=== PATIENT | female | born 1980 | race Caucasian/White ===

== ENCOUNTER 2016-09-06 12:59 | Emergency (ER) | payer OTHER ==
[~2016-09-06] VITALS: Ht 177.8 cm; Wt 75.9 kg
[~2016-09-06 12:59] MED LIST: CEPHALEXIN500 M1 PO; LORTAB 5/500 501 TAB PO; MOTRIN 600600 MG/TAB PO; PERCOCET 5/321 UDTAB PO; PRENATAL VITAMI1 TA5 PO; PROVERA10 MG PO; SEPTRA DS 8001 TAB PO
[2016-09-06 13:18] VITALS: BP 116/74; TEMP 98.2
[2016-09-06 13:53] LABS: ADD PATHOLOGY DIFF REVIEW NO; TOTAL CELLS COUNTED 0
[2016-09-06 13:57] LABS: HEMATOCRIT 40.5 % (37.0-47.0); MEAN CELL VOLUME 91 fl (80.0-100.0); MEAN CORPUSCULAR HEMOGLOBIN 32 pg (27.0-31.0); MEAN CORPUSCULAR HGB CONC 35 g/dl (33.0-37.0); MEAN PLATELET VOLUME 10.6 fl (7.4-10.4); PLATELET COUNT 234 K/mm3 (130-400); RED BLOOD COUNT 4.45 M/mm3 (4.10-5.30); REDCELL DISTRIBUTION WIDTH-CV 12.9 % (11.5-14.5); WHITE BLOOD COUNT 7.8 K/mm3 (4.8-10.8)
[2016-09-06 14:11] LABS: ADJUSTED CALCIUM 8.9 mg/dL (8.4-10.2); ALANINE AMINOTRANSFERASE 25 U/L (9-52); ALBUMIN 4.3 gm/dL (3.5-5.0); ALKALINE PHOSPHATASE 65 U/L (50-136); ANION GAP 10 mmol/L (7-16); BILIRUBIN,TOTAL 1.4 mg/dL (0.0-1.0); BLOOD UREA NITROGEN 8 mg/dL (7-17); CALCIUM 9.1 mg/dL (8.4-10.2); CARBON DIOXIDE 27 mmol/L (22-30); CHLORIDE 101 mmol/L (98-107); CREATININE, serum 0.62 mg/dL (0.52-1.25); GLUCOSE 90 mg/dL (74-106); POTASSIUM 3.9 mmol/L (3.4-5.0); SODIUM 138 mmol/L (137-145); TOTAL PROTEIN 7.8 gm/dL (6.4-8.2)
[2016-09-06 14:13] LABS: ERYTHROCYTE SEDIMENTATION RATE 4 mm/hr (0-20)
[2016-09-06 14:14] LABS: C-REACTIVE PROTEIN < 0.5 mg/dL (0.0-0.9)
[2016-09-06] MEDS ORDERED: PREDNISONE10 MG PO (14:43)
[2016-09-06] MEDS ORDERED: VALTREX1 GM PO (14:43)
[2016-09-06 15:11] VITALS: PULSE 61
[2016-09-06] MEDS ORDERED: PERCOCET 325 MG1 TA2 PO (15:18)
== END 2016-09-06 15:22 | disposition home or self-care (01) ==
LOC: COL.ER 12:59
PROVIDERS: Family Medicine
DX: G51.0 Bell's palsy (principal)
CPT/HCPCS: J1170

== ENCOUNTER 2016-09-19 02:34 | Emergency (ER) | payer OTHER ==
[~2016-09-19] VITALS: Ht 177.8 cm; Wt 75.0 kg
[~2016-09-19 02:34] MED LIST changes: +PERCOCET 325 MG1 TA2 PO; +PREDNISONE10 MG PO; +VALTREX1 GM PO
[2016-09-19 02:39] VITALS: TEMP 98
[2016-09-19] MEDS ORDERED: MOTRIN 600600 MG/TAB PO (02:46)
[2016-09-19] MEDS ORDERED: NEURONTIN300 MG/CAP PO (02:46)
[2016-09-19 02:52] LABS: BASO # 0.1 (0.0-0.2); BASO % 0.4 % (0.0-2.0); EOS # 0.4 (0.0-0.7); EOS % 2.6 % (0-4.0); GRAN # 8.6 (1.4-6.5); GRAN % 58.3 % (42.2-75.2); HEMATOCRIT 42.3 % (37.0-47.0); HEMOGLOBIN 14.4 g/dl (12.5-16.0); LYMPH # 4.4 (1.2-3.4); LYMPH % 29.5 % (20.0-51.0); MEAN CELL VOLUME 92 fl (80.0-100.0); MEAN CORPUSCULAR HEMOGLOBIN 31 pg (27.0-31.0); MEAN CORPUSCULAR HGB CONC 34 g/dl (33.0-37.0); MEAN PLATELET VOLUME 10.2 fl (7.4-10.4); MONO # 1.3 (0.1-0.6); MONO % 8.8 % (1.7-9.3); PLATELET COUNT 279 K/mm3 (130-400); RED BLOOD COUNT 4.61 M/mm3 (4.10-5.30); REDCELL DISTRIBUTION WIDTH-CV 13.2 % (11.5-14.5); WHITE BLOOD COUNT 14.8 K/mm3 (4.8-10.8)
[2016-09-19 03:08] LABS: ADJUSTED CALCIUM 9.3 mg/dL (8.4-10.2); ALBUMIN 4.4 gm/dL (3.5-5.0); BILIRUBIN,TOTAL 0.7 mg/dL (0.0-1.0); C-REACTIVE PROTEIN 0.6 mg/dL (0.0-0.9); CALCIUM 9.6 mg/dL (8.4-10.2); CREATININE, serum 0.64 mg/dL (0.52-1.25); POTASSIUM 3.6 mmol/L (3.4-5.0)
[2016-09-19 03:24] LABS: PH 7 (5-8); SQUAMOUS EPITHELIAL 0-2 /hpf; URINE APPEARANCE Hazy; URINE BACTERIA None Seen /hpf; URINE BILIRUBIN Negative (NEGATIVE); URINE BLOOD Negative (NEGATIVE); URINE COLOR Yellow; URINE GLUCOSE Negative (NEGATIVE); URINE KETONE Trace (NEGATIVE); URINE RBC 0-2 /hpf
[2016-09-19 05:05] VITALS: BP 136/74; PULSE 82
== END 2016-09-19 05:20 | disposition home or self-care (01) ==
LOC: COL.ER 02:34
PROVIDERS: Emergency Medicine
DX: R10.31 Right lower quadrant pain (principal); R10.32 Left lower quadrant pain
CPT/HCPCS: J1170; J2405; J7030; Q9967

== ENCOUNTER → 2020-05-06 | Outpatient (CLI) | payer OTHER ==
[~2020-05-06] MED LIST changes: +NEURONTIN300 MG/CAP PO
== END ==
LOC: MC.RAD 14:22
DX: Z12.31 Encounter for screening mammogram for malignant neoplasm of breast (principal)

== ENCOUNTER 2020-06-22 13:25 | Observation (INO) | payer OTHER ==
[2020-06-22] VITALS (7 sets, daily range): BP systolic 111–135; BP diastolic 59–73; PULSE 53–73
[~2020-06-22] VITALS: Ht 177.8 cm; Wt 79.5 kg
[2020-06-22 13:54] LABS: BASO # 0.1 (0.0-0.2); BASO % 0.6 % (0.0-2.0); EOS # 0.1 (0.0-0.7); EOS % 0.6 % (0-4.0); GRAN # 9.5 (1.4-6.5); GRAN % 76.4 % (42.2-75.2); HEMATOCRIT 42.3 % (37.0-47.0); HEMOGLOBIN 14.6 g/dl (12.5-16.0); LYMPH # 1.9 (1.2-3.4); LYMPH % 15.2 % (20.0-51.0); MEAN CELL VOLUME 91 fl (80.0-100.0); MEAN CORPUSCULAR HEMOGLOBIN 31 pg (27.0-31.0); MEAN CORPUSCULAR HGB CONC 35 g/dl (33.0-37.0); MEAN PLATELET VOLUME 10.7 fl (7.4-10.4); MONO # 0.9 (0.1-0.6); MONO % 6.8 % (1.7-9.3); PLATELET COUNT 282 K/mm3 (130-400); RED BLOOD COUNT 4.67 M/mm3 (4.10-5.30); REDCELL DISTRIBUTION WIDTH-CV 12.7 % (11.5-14.5)
[2020-06-22 14:04] LABS: ALBUMIN 4.6 gm/dL (3.5-5.0); BILIRUBIN,TOTAL 0.9 mg/dL (0.0-1.0); CALCIUM 9.5 mg/dL (8.4-10.2); CREATININE, serum 0.59 (0.52-1.25); POTASSIUM 3.8 mmol/L (3.4-5.0)
[2020-06-22 14:28] LABS: COLLECTION METHOD CLEAN CATCH
[2020-06-22 14:35] LABS: AMORPHOUS CRYSTAL Present /uL; MUCOUS Present /lpf; PH 7 (5-8); SQUAMOUS EPITHELIAL 0-2 /hpf; URINE APPEARANCE Cloudy; URINE BACTERIA None Seen /hpf; URINE BILIRUBIN Negative (NEGATIVE); URINE BLOOD Negative (NEGATIVE); URINE COLOR Yellow; URINE GLUCOSE Negative (NEGATIVE); URINE KETONE 1+ (NEGATIVE); URINE LEUKOCYTE ESTERASE Negative (NEGATIVE); URINE NITRATE Negative (NEGATIVE); URINE PROTEIN(semi-quant) 1+ (NEGATIVE); URINE RBC 0-2 /hpf; URINE UROBILINOGEN Negative (NEGATIVE)
[2020-06-22] MEDS ORDERED: PERCOCET 325 MG1 TA2 PO (20:27)
[2020-06-22] MEDS ORDERED: MOTRIN 600600 MG/TAB PO (20:28)
[2020-06-23 04:30] VITALS: BP 107/59; PULSE 44; TEMP 97.6
[2020-06-23 08:51] VITALS: BP 126/76; PULSE 82; TEMP 97.8
== END 2020-06-23 10:30 | disposition home or self-care (01) ==
LOC: COL.ER 13:25 → OB 18:55
PROVIDERS: Nurse Practitioner; ADMIT Obstetrics & Gynecology
DX: D27.1 Benign neoplasm of left ovary (principal); Z90.710 Acquired absence of both cervix and uterus; G50.0 Trigeminal neuralgia; N83.512 Torsion of left ovary and ovarian pedicle
CPT/HCPCS: G0378; J0690; J1100; J1170; J1885; J2270; J2405; J2704; J2710; J3010; J7030; Q9967